=== PATIENT | female | born 1995 | race American Indian/Alaskan Native ===

== ENCOUNTER 2017-01-01 01:05 | Outpatient (CLI) | payer MEDICAID ==
[2017-01-01] MEDS ORDERED: LACTATED RINGERS 500 ML IV ONE (01:17)
[2017-01-01 01:24] VITALS: BP 118/70
[2017-01-01] MEDS ORDERED: LACTATED RINGERS 1,000 ML IV ONE ×3 (01:37→04:11)
[2017-01-01] MEDS ORDERED: BRETHINE SUB-Q ONE ×2 (02:09→04:05)
[2017-01-01 02:17] LABS: Bilirubin,Urine NEG (Negative); Blood,Urine NEG (Negative); Ketones,Urine NEG (Negative); Leukocyte Esterase,Urine LG (Negative); Mucus,Urine 3+ /HPF; Nitrite,Urine NEG (Negative); Uric Acid Crystals,Urine 2+
[2017-01-01] MEDS ORDERED: BRETHINE SUB-Q PRN (03:00)
[2017-01-01 04:06] LABS: Urine Drugs of Abuse Note Disclamer
--- NOTE | 2017-01-01 04:41 | Event Note ---
Date: 01/01/17 (pt arrived with c/o ctx @ 36 weeks Receives care with a provider in [place]) pt states she was just seen in the office Wednesday and was w/o complications. She got upset that when she went to the pharmacy to p/u her RX there was an prescription for Valtrex. I did explain that Valtrex is for herpes. No one had told her she has herpes. Encouraged her to contact her OB office for information. Ctx resolved after fluids and 2 doses of Terb. Cervix unchanged. Pt d/c home instructed to f/u with her provider.
== END 2017-01-01 04:45 | disposition home or self-care (01) ==
LOC: TRG 01:05
PROVIDERS: ATTEND Obstetrics & Gynecology
DX: O62.9 Abnormality of forces of labor, unspecified (principal); O47.03 False labor before 37 completed weeks of gestation, third trimester; Z3A.36 36 weeks gestation of pregnancy
CPT/HCPCS: 80307; 81001; 96360; 96361; 96372; J3105; J7120

== ENCOUNTER 2017-08-27 12:29 | Emergency (ER) | payer MEDICAID ==
[2017-08-27 13:37] VITALS: BP 110/65
--- NOTE | 2017-08-27 15:03 | Emergency Department Report ---
ED Female HPI - General Chief complaint: Abdominal Pain Stated complaint: AND BLEEDING Time Seen by Provider: 08/27/17 14:56 Source: patient Mode of arrival: Ambulatory Limitations: Language Barrier - History of Present Illness Initial comments: Ms. Spence is 21 female who is current 16 weeks 4 days . Presents with vaginal spotting and blood in urine. Seen by OB Dr. Mcdowell today and referred to ER. MD Complaint: vaginal bleeding, other (hematuria) -: week(s) (1) Severity: mild Quality: cramping Consistency: intermittent Improves with: none Worsens with: none Are you Now?: Yes (YOAN 02/07/2018) Associated Symptoms: vaginal bleeding, hematuria, other (pelvic craminpg). denies: vaginal discharge, nausea/vomiting, fever/chills, headaches, loss of appetite, dysuria, rash, seizure, shortness of breath, syncope, weakness - Related Data Home Medications Medication Instructions Recorded Confirmed Last Taken ALBUTEROL Inhaler [Proair] 2 puff IH QID PRN 12/16/12 12/16/12 12/16/12 12:00 Previous Rx's Medication Instructions Recorded Last Taken Type Albuterol Sulfate [Ventolin HFA] 2 puff IH Q4H PRN #1 hfa.aer.ad 12/17/12 Unknown Rx Loratadine [Claritin] 10 mg PO DAILY #30 tablet 12/17/12 Unknown Rx Prednisone 20 mg PO QDAY #5 tablet 12/17/12 Unknown Rx Sulfamethoxazole/Trimethoprim 1 each PO BID #14 tablet 12/17/12 Unknown Rx [Bactrim DS] Allergies Allergy/AdvReac Type Severity Reaction Status Date / Time No Known Allergies Allergy Verified 01/01/17 01:17 ED Review of Systems ROS: Stated complaint: AND BLEEDING Other details as noted in HPI Comment: All other systems reviewed and negative Constitutional: denies: fever, malaise Cardiovascular: denies: chest pain ED Past Medical Hx - Past Medical History Hx Asthma: Yes - Surgical History Additional Surgical History: hernia repair - Social History Smoking Status: Never Smoker Substance Use Type: None - Medications Home Medications: Home Medications Medication Instructions Recorded Confirmed Last Taken Type ALBUTEROL Inhaler [Proair] 2 puff IH QID PRN 12/16/12 12/16/12 12/16/12 12:00 History Albuterol Sulfate [Ventolin HFA] 2 puff IH Q4H PRN #1 hfa.aer.ad 12/17/12 Unknown Rx Loratadine [Claritin] 10 mg PO DAILY #30 tablet 12/17/12 Unknown Rx Prednisone 20 mg PO QDAY #5 tablet 12/17/12 Unknown Rx Sulfamethoxazole/Trimethoprim 1 each PO BID #14 tablet 12/17/12 Unknown Rx [Bactrim DS] ED Physical Exam - General Limitations: Language Barrier General appearance: alert, in no apparent distress - Head Head exam: Present: atraumatic, normocephalic - Eye Eye exam: Present: normal appearance - ENT ENT exam: Present: mucous membranes moist - Neck Neck exam: Present: normal inspection. Absent: tenderness, meningismus - Respiratory Respiratory exam: Present: normal lung sounds bilaterally. Absent: respiratory distress, wheezes, rales, rhonchi - Cardiovascular Cardiovascular Exam: Present: regular rate, normal rhythm, normal heart sounds. Absent: bradycardia, tachycardia, systolic murmur, diastolic murmur, rubs, gallop - GI/Abdominal GI/Abdominal exam: Present: soft, normal bowel sounds. Absent: distended, tenderness, guarding, rebound - Extremities Exam Extremities exam: Present: normal inspection - Back Exam Back exam: Present: normal inspection - Neurological Exam Neurological exam: Present: alert, oriented X3 - Psychiatric Psychiatric exam: Present: normal affect, normal mood - Skin Skin exam: Present: warm, dry, intact, normal color. Absent: rash ED Course Vital Signs 08/27/17 13:35 Temperature 98.3 F Pulse Rate 87 Respiratory 16 Rate Blood Pressure 110/65 O2 Sat by Pulse 100 Oximetry ED Medical Decision Making - Lab Data Result diagrams: 08/27/17 15:31 08/27/17 15:31 - Medical Decision Making Ms. Spence is 16 weeks . Went history of hematuria I suspected UTI which was diagnosed per UA. Possible threatened miscarriage with history of possible vaginal bleeding. Unfortunately Ms Spence eloped before ultrasound was obtained. I was unable to provide any further treatment. Critical care attestation.: If time is entered above; I have spent that time in minutes in the direct care of this critically ill patient, excluding procedure time. ED Disposition Clinical Impression: UTI (lower urinary tract infection), Disposition: ELOPED Is pt being admited?: No Does the pt Need Aspirin: No Condition: Stable Referrals: BEKAH MCDOWELL MD [Primary Care Provider] - 3-5 Days Time of Disposition: 17:34
[2017-08-27 15:39] LABS: Bilirubin,Urine NEG (Negative); Blood,Urine NEG (Negative); Color,Urine Yellow (Yellow); Mucus,Urine 3+ /HPF; Protein,Urine <15 mg/dL mg/dL (Negative); Sperm,Urine FEW /HPF (NP); Urobilinogen,Urine < 2.0 mg/dL (<2.0)
[2017-08-27 15:46] LABS: Basophils % (Auto) 0.3 % (0.0-1.8); Eosinophils % (Auto) 0.4 % (0.0-4.3); Hematocrit 39.8 % (30.3-42.9); Hemoglobin 12.9 gm/dl (10.1-14.3); Lymphocytes # (Auto) 1.7 K/mm3 (1.2-5.4); Mean Corpuscular HGB Conc 32 % (30-34); Mean Corpuscular Hemoglobin 29 pg (28-32); Mean Corpuscular Volume 90 fl (79-97); Monocytes # (Auto) 0.4 K/mm3 (0.0-0.8); Monocytes % (Auto) 3.8 % (0.0-7.3); Platelet Count 380 K/mm3 (140-440); Red Blood Count 4.41 M/mm3 (3.65-5.03); Red Cell Distribution Width 13.1 % (13.2-15.2)
[2017-08-27 16:06] LABS: BUN/Creatinine Ratio 13; Blood Urea Nitrogen 5 mg/dL (7-17); Calcium 9.3 mg/dL (8.4-10.2); Hemolysis Index 7
== END 2017-08-27 17:40 | disposition left against medical advice (07) ==
LOC: ED 12:29
DX: O23.42 Unspecified infection of urinary tract in pregnancy, second trimester (principal); O99.511 Diseases of the respiratory system complicating pregnancy, first trimester; Z3A.16 16 weeks gestation of pregnancy
CPT/HCPCS: 36415; 80048; 81001; 84702; 85025; 86900; 86901; 99283